=== PATIENT | male | born 1955 | race Caucasian/White ===

== ENCOUNTER → 2016-12-01 | Outpatient (CLI) | payer OTHER ==
--- NOTE | 2016-12-01 18:52 | Diagnostic Imaging Report ---
INDICATION: Left-sided chest wall pain of two weeks' duration. COMPARISON: No priors. FINDINGS: Flattening of the diaphragms and expansion of the retrosternal airspace, compatible with symmetrical air trapping. There are some discoid atelectatic changes in the right middle lobe. No alveolar consolidation. No effusion or pneumothorax. Hilar and mediastinal contour is normal. No free or beneath the diaphragms. No osseous abnormality identified. IMPRESSION: Hyperexpanded lungs with air trapping. Mild discoid atelectasis in the right middle lobe. No pneumonia or acute pleural pathology. No failure or chest wall abnormality. Dictated by: Dictated on workstation # [id number]
== END ==
LOC: RAD 14:46
PROVIDERS: ATTEND Internal Medicine
DX: R07.89 Other chest pain (principal); F17.200 Nicotine dependence, unspecified, uncomplicated
CPT/HCPCS: 71020

== ENCOUNTER 2017-08-02 05:38 | Outpatient (CLI) | payer BC ==
[~2017-08-02] VITALS: Ht 170.2 cm; Wt 69.4 kg
[2017-08-02] MEDS ORDERED: ASPI-586 PO (10:09)
[2017-08-02] MEDS ORDERED: VARE1TAB22 PO (10:09)
[2017-08-02] MEDS ORDERED: LEVO50TA6 PO (10:09)
[2017-08-02] MEDS ORDERED: SIMV40TA4 PO (10:09)
== END 2017-08-02 10:15 ==
LOC: PREOP 05:38
PROVIDERS: ATTEND Internal Medicine
DX: Z01.818 Encounter for other preprocedural examination (principal); Z12.11 Encounter for screening for malignant neoplasm of colon

== ENCOUNTER 2017-08-04 07:31 | Day surgery (SDC) | payer BC, OTHER ==
--- NOTE | 2017-07-25 14:56 | HISTORY AND PHYSICAL ---
DATE OF SERVICE: DATE OF ADMISSION: 08/04/2017. HISTORY OF PRESENT ILLNESS: The patient is a 62-year-old white male who presented to the office for routine medical check and evaluation of hyperlipidemia, as well as tobaccoism. He reports that he has been feeling well. He has been dizzy over the summer and his weight was down 8 pounds. He has a 30+ pack year smoking history and has been taking Chantix, but still smoking 1 to 2 cigarettes per day. He denies cough, hemoptysis or chest pain. He had a chest x-ray for chest wall pain in November that revealed no pulmonary or chest wall abnormalities. Energy level has been reportedly good and he voiced no complaints. In review of his chart he had one other colonoscopy performed in 2003 that was unremarkable so made recommendation for repeat screening colonoscopy. He has noted no bright red blood per rectum or melena. Denies abdominal pain or bowel habit change. PAST SURGICAL HISTORY: Noncontributory. PAST MEDICAL HISTORY: Has history of hyperlipidemia with no known history of vascular disease. He was recently diagnosed with hypothyroidism which may actually be contributing to his weight loss. TSH was 36.8 on the 18 of July, and he has been initiated on 0.05 mg of L-thyroxine with peak TSH scheduled in six weeks. PHYSICAL EXAMINATION: GENERAL: Reveals a white male who appears to be in no acute distress. He did have some mild facial puffiness. VITAL SIGNS: Blood pressure is 122/76 with a heart rate of 60 and regular. NECK: Revealed no JVD, adenopathy or bruits. CHEST: Chest was clear. CARDIOVASCULAR: Revealed a regular rate and rhythm without murmur, S3 or S4. ABDOMEN: Soft, supple without mass, organomegaly or tenderness. EXTREMITIES: Reveal no cyanosis, clubbing or edema. HEENT: Oral cavity revealed a Mallampati 1 configuration. Pharynx was clear. No exudate was noted. ASSESSMENT AND PLAN: 1. Hypothyroidism. Presume Bharathi's. No past history of radiation exposure. No known family history of autoimmune disease that the patient is aware of. L-thyroxine has been initiated as per above 0.05 mg daily, with repeat TSH in six weeks. 2. The patient is set up for screening colonoscopy as it has been 13 years. 3. Hyperlipidemia despite hypothyroidism remains under good control. Blood tests were reviewed with the patient. His HDL cholesterol is 59 and LDL 64 with a triglyceride level of 81. PSA was low at 0.81. He is scheduled for routine followup in six months. Job ID: [id number] DocumentID: [id number] Dictated Date: 07/25/2017 13:54:35 Travel Director Date: 07/25/2017 14:56:39 Dictated By: JOCELYNE GONZALEZ MD
[~2017-08-04] VITALS: Ht 170.2 cm; Wt 69.4 kg
[~2017-08-04 07:31] MED LIST: ASPI-586 PO; LEVO50TA6 PO; SIMV40TA4 PO; VARE1TAB22 PO
[2017-08-04] MEDS ORDERED: 1/2 NS IV SOLUTION 1,000 ML IV ONE (07:43)
[2017-08-04] MEDS ORDERED: 1/2 NS IV SOLUTION 1,000 ML IV STA (07:44)
[2017-08-04] MEDS ORDERED: LIDOCAINE JELLY 2% (XYLOCAINE) 5 ML TUBE MM PRN (07:45)
[2017-08-04 08:07] VITALS: BP 109/80
[2017-08-04] MEDS: fentaNYL INJECTION 100 MCG/2 ML AMP IVP PRN ×2 (08:36→08:59)
[2017-08-04] MEDS: MIDAZOLAM 2 MG/2 ML (VERSED) VIAL IVP PRN ×2 (08:49→09:07)
--- NOTE | 2017-08-04 09:29 | Pre-Op Note & Conscious Sedat ---
Pre-Operative Progress Note H&P Reviewed The H&P was reviewed, patient examined and no changes noted. Date H&P Reviewed: Aug 04, 2017 Time H&P Reviewed: 08:00 Conscious Sedation Pre-Proced ASA Class: 2 Airway Mallampati Classification: ([place] appropriate class) I. II. III, IV Lungs Heart ASA score ASA 1: a normal healthy patient ASA 2: a patient with a mild systemic disease (mid diabetes, controlled hypertension, obesity ASA 3: a patient with a severe systemic disease that limits activity (angina , COPD, prior Myocardial infarction) ASA 4: a patient with an incapacitating disease that is a constant threat to life (CHF, renal failure) ASA 5: a moribund patient not expected to survive 24 hrs. (ruptured aneurysm) ASA 6: a declared brain patient whose organs are being harvested. For emergent operations, add the letter E after the classification Grade 1 Sedation Plan: Analgesia, Amnesia, Plan communicated to team members, Discussed options with patient/fam, Discussed risks with patient/fam Note The patient is an appropriate candidate to undergo the planned procedure, sedation, and anesthesia. The patient immediately re-assessed prior to indication. JOCELYNE GONZALEZ MD Aug 04, 2017 09:29
[2017-08-04 09:40] VITALS: BP 112/67
[2017-08-04 10:10] VITALS: BP 106/68
[2017-08-04 10:28] VITALS: BP 106/68
--- NOTE | 2017-08-06 12:40 | OPERATIVE REPORT ---
DATE OF SERVICE: 08/04/2017 COLONOSCOPY SUMMARY I am his primary care physician. INDICATION FOR THE PROCEDURE: Screening colonoscopy. DESCRIPTION OF PROCEDURE: The patient was placed in the left lateral decubitus position. Prior to undergoing colonoscopy, digital rectal evaluation was performed. Anal sphincter tone was normal and the perianal reflex was intact. The prostate was mildly enlarged, flat, anodular and nontender to digital inspection. No abnormalities, no additional inspection of anal canal or distal rectal vault. The colonoscope was then inserted into the rectum and under direct visualization, advanced to the cecum. The cecum was identified by identification of the ileocecal valve and cecal strap. Photographic documentation was obtained. Careful inspection was made as the colonoscope was withdrawn. FINDINGS: There was no evidence for internal or external hemorrhoids and the rectum was unremarkable. Mild diverticular disease confined to the sigmoid colon was present without evidence for diverticulitis. The descending colon, splenic flexure and transverse colon were unremarkable. A diminutive adenomatous appearing polyp was present at the hepatic flexure. It was biopsied and cauterized with hot forceps with no subsequent blood loss. The ascending colon and cecum were unremarkable. Assessment: 1 one diminutive polyp was removed via hot forceps from the hepatic flexure. Pathology confirmed a benign tubular adenoma. We'll advocate consideration for repeat screening colonoscopy in 10 years. Patient is not aware of any family history for colon cancer or polyps. 2. Mild diverticular disease confined to the sigmoid colon. 3. Digital evaluation compatible with mild BPH as noted above. DICTATION ENDS HERE Job ID: [id number] DocumentID: [id number] Dictated Date: 08/04/2017 12:45:52 Coding Compliance Auditor Date: 08/05/2017 01:04:45 Dictated By: JOCELYNE GONZALEZ MD [facility]
== END 2017-08-04 10:28 | disposition home or self-care (01) ==
LOC: ENDO 07:31
PROVIDERS: ATTEND Internal Medicine
DX: Z12.11 Encounter for screening for malignant neoplasm of colon (principal); K57.30 Diverticulosis of large intestine without perforation or abscess without bleeding; E78.5 Hyperlipidemia, unspecified; E03.9 Hypothyroidism, unspecified; F17.210 Nicotine dependence, cigarettes, uncomplicated

== ENCOUNTER 2019-11-04 12:05 | Outpatient (CLI) | payer BC ==
[~2019-11-04] VITALS: Ht 170 cm; Wt 77.2 kg
[~2019-11-04 12:05] MED LIST changes: +SIMV40TA25 PO; -SIMV40TA4 PO
[2019-11-04] MEDS ORDERED: LEVO125T6 PO (13:42)
== END 2019-11-04 13:50 | disposition home or self-care (01) ==
LOC: PREOP 12:05
PROVIDERS: ATTEND Surgery
DX: Z01.818 Encounter for other preprocedural examination (principal)

== ENCOUNTER 2019-11-06 12:57 | Day surgery (SDC) | payer BC, MEDICARE ==
[2019-11-06] VITALS (11 sets, daily range): BP systolic 136–164; BP diastolic 72–90
[~2019-11-06] VITALS: Ht 170 cm; Wt 77.2 kg
[~2019-11-06 12:57] MED LIST changes: +LEVO125T6 PO
[2019-11-06] MEDS ORDERED: ceFAZolin 2 GM/50 ML NS 50 ML IV ONE (13:15)
[2019-11-06] MEDS: LACTATED RINGERS 1,000 ML IV PRN ×2 (13:30→15:24)
[2019-11-06] MEDS ORDERED: BUP/EPI 0.5% 1:200,000 (SENSORCAINE) 30 ML VIAL ONE (13:49)
[2019-11-06] MEDS ORDERED: ASPI-586 PO (13:52)
--- NOTE | 2019-11-06 14:00 | Progress Note-Pre Operative ---
Pre-Operative Progress Note H&P Reviewed The H&P was reviewed, patient examined and no changes noted. Time Seen by Provider: 13:58 Date H&P Reviewed: Nov 06, 2019 Time H&P Reviewed: 13:56 Pre-Operative Diagnosis: Incacerated VIJAYA SPRINGER DO Nov 06, 2019 14:00
[2019-11-06] MEDS ORDERED: LIDOCAINE PF 2% 5 ML (XYLOCAINE) VIAL ONE (14:19)
[2019-11-06] MEDS ORDERED: MIDAZOLAM 2 MG/2 ML (VERSED) VIAL ONE (14:19)
[2019-11-06] MEDS ORDERED: fentaNYL INJECTION 100 MCG/2 ML AMP ONE (14:19)
[2019-11-06] MEDS ORDERED: SEVOFLURANE (ULTANE) 15 ML INHAL SOLN ONE ×3 (14:19→15:31)
[2019-11-06] MEDS ORDERED: proPOfol 200 MG/20 ML (DIPRIVAN) VIAL IV ONE (14:19)
[2019-11-06] MEDS ORDERED: DEXAMETHASONE 10 MG/ML (DECADRON) 1 ML VIAL ONE (14:23)
[2019-11-06] MEDS ORDERED: ROCURONIUM 10 MG/ML 5 ML SYRINGE IV ONE (14:23)
[2019-11-06] MEDS ORDERED: ONDANSETRON 4 MG/2 ML (SDV) Z0FRAN ONE (14:23)
[2019-11-06] MEDS ORDERED: GLYCOPYRROLATE 0.2 MG/ML (ROBINUL) 2 ML VIAL ONE (15:17)
[2019-11-06] MEDS ORDERED: NEOSTIGMINE 1 MG/ML 5 ML SYRINGE ONE (15:17)
--- NOTE | 2019-11-06 15:39 | Progress Note-Post Operative ---
Post-Operative Progess Note Surgeon (s)/Servicenow Administrator Developer (s) Surgeon VIJAYA SMITH DO Servicenow Administrator Developer: Sarah Pre-Operative Diagnosis Incacerated RIH Post-Operative Diagnosis Incarcerated RIH Cord Lipoma Procedure & Operative Findings Date of Procedure 11/06/19 Procedure Performed/Findings RIH with mesh Exc cord lipoma Anesthesia Type GET Estimated Blood Loss Estimated blood loss (mL): scant Specimens/Packing Specimens Removed hernia sac cord lipoma VIJAYA SMITH DO Nov 06, 2019 15:39
[2019-11-06] MEDS ORDERED: ACHD5005 PO (15:40)
--- NOTE | 2019-11-06 15:41 | Discharge Inst-Surgical ---
Discharge Inst-Surgical Depart Medication/Instructions New, Converted or Re-Newed RX: RX Given to Pt/Family Patient Instructions Follow up Appt: Make appointment for 1 week. [phone] Instructions: No lifting greater than 20 pounds. No strenuous activity. May shower in 24 hours, no tub bath or soaking. Use incentive spirometer at home as directed. No Smoking Skin/Wound Care: May remove bandages in am. You need to leave the Dermabond on incision it will fall off on it's own. Symptoms to Report: Appetite Changes, Extremity Discoloration, Numbness/Tingling, Swelling Increased, Bleeding Excessive, Eyesight Changes, Pain Increased, Urine Color Change, Constipation(Persistent), Fever over 101 degree F, Pain/Pressure in chest, Urinating Difficulty, Cough Up/Vomit Blood, Heart Beat Irreg/Pounding, Pain/Pressure in jaw, Cramps in feet or legs, Lightheadedness, Pain/Pressure in shoulder, Diarrhea(Persistent), Memory Changes Suddenly, Questions/Concerns, Weight gain consecutive days, Dizziness/Fainting, Nausea/Vomiting, Shortness of Breath, Weight gain over 2 pounds If questions or concerns contact your physician Or seek help at emergency department. Activity Activity Instructions: Avoid Stress to Incision Driving Instructions: No Driving/Refer to Dr. Waite Discharge Diet: No Restrictions Diet After 24 Hours: Clear Liquid if Nauseous If Any Problems/Questions/Issu: Contact Your Physician, Go to Emergency Room Skin/Wound Care Infection Signs and Symptoms: Increased Redness, Foul Odor of Wound, Increased Drainage, Skin Itchy or Has a Rash, Increased Swelling, Temperature Above 101 F Bathing Instructions: Shower Stitches/Clay/Dermabond Dis: Dermabond Ice Pack: Ice On and Off Site (as needed for pain) VIJAYA SMITH DO Nov 06, 2019 15:41
[2019-11-06] MEDS ORDERED: HYDROmorphone 2 MG/ML VIAL (DILAUDID) ONE (15:45)
[2019-11-06] MEDS ORDERED: ONDANSETRON 4 MG/2 ML (SDV) Z0FRAN IVP PRN (15:45)
[2019-11-06] MEDS ORDERED: HYDROmorphone 2 MG/ML VIAL (DILAUDID) IV ONE (15:45)
[2019-11-06] MEDS ORDERED: HYDROcodone/APAP 5 MG/325 MG (LORTAB) TAB ONE (16:54)
[2019-11-06] MEDS ORDERED: HYDROcodone/APAP 5 MG/325 MG (LORTAB) TAB PO PRN (17:00)
--- NOTE | 2019-11-06 17:06 | NUR ---
LORTAB 5/325 MG, ONE TAB, GIVEN PO FOR C/O RIGHT LOWER ABD SURGICAL SITE PAIN RATED 3-4. DERMABOND INTACT TO SURGICAL INCISION, ICE PACK ON. HAS HAD CRACKERS AND PO FLUIDS WITHOUT PROBLEM.
--- NOTE | 2019-11-06 17:45 | NUR ---
SURGICAL SITE PAIN RATED 2. MOVES EASILY FROM LYING TO SITTING POSITION FOR DISMISSAL. NO CHANGE IN SITE ASSESSMENT. STATES HE IS READY FOR DISMISSAL.
--- NOTE | 2019-11-06 17:54 | Anesthesia-General Post-Op ---
General Patient Condition Mental Status/LOC: Same as Preop Cardiovascular: Satisfactory Nausea/Vomiting: Absent Respiratory: Satisfactory Pain: Controlled Complications: Absent Post Op Complications Complications None Follow Up Care/Instructions Patient Instructions None needed. Anesthesia/Patient Condition Patient Condition Patient is doing well, no complaints, stable vital signs, no apparent adverse anesthesia problems. No complications reported per nursing. D/C home per [facility] Criteria: Yes KHLOE HIGHTOWER CRNA Nov 06, 2019 17:54
--- NOTE | 2019-11-06 23:15 | OPERATIVE REPORT ---
DATE OF SERVICE: PREOPERATIVE DIAGNOSIS: Right inguinal hernia. POSTOPERATIVE DIAGNOSES: 1. Right incarcerated inguinal hernia. 2. Cord lipoma. PROCEDURES: 1. Right inguinal herniorrhaphy with mesh placement. 2. Excision of right cord lipoma. SURGEON: Emre Samano DO SAS DEVELOPER: Steve Smith DO ANESTHESIA: General endotracheal tube. SPECIMEN: Cord lipoma and hernia sac. BLOOD LOSS: Scant. FLUIDS: Per anesthesia. POSTOPERATIVE CONDITION: Stable. INDICATION FOR PROCEDURE: The patient is a 64-year-old male, who has pain in the right inguinal region bulging and diagnosed with a right inguinal hernia. FINDINGS: The patient had an incarcerated inguinal hernia, some fat stuck in the hernia sac. He also had a cord lipoma that was removed. PROCEDURE NOTE: After informed consent was obtained, the patient was brought to the operating room, placed on the operating table in supine position, sterilely prepped and draped in normal fashion. Local lidocaine was used to perform an ilioinguinal nerve block as well as pubic tubercle block and infiltrated the right inguinal region with local, then made an incision with #15 blade, carried down through skin into subcutaneous tissue, deepened down to subcutaneous tissue with Bovie electrocautery down to fascia. Fascia of the external oblique was then infiltrated with local and incised to the external inguinal ring with Bovie electrocautery and then carefully and bluntly dissected under this and then able to get under the cord and cord structures at the pubic tubercle, placed a [place] drain, pulled in inferolateral direction, and start looking superiorly, medially, found the indirect hernia sac, able to grasp this and carefully dissected this off the cord and cord structures bluntly as well as with some Bovie electrocautery. Once able to peel it off and opened up, there was a piece of fat, this was pushed back in and then twisted the hernia sac and suture ligated the hernia sac with 2-0 Vicryl and then tied with 2-0 Vicryl. I then cut this hernia sac off and passed off the table. Encountered a cord lipoma, I elected to remove this. Cut this off with Bovie electrocautery and passed this off the table. There is a mild floor defect little bit of weakness, almost a direct inguinal hernia closed with 2-0 Vicryl [id number] sutures to support it, then placed a Parietex mesh into the canal, trimmed to fit into the inguinal canal, sutured once the pubic tubercle with 0 Vicryl and circled the cord with a precut hole thereby recreating the internal inguinal ring. Placed the rest of the mesh underneath the external oblique fascia and then copiously irrigated with normal saline, suctioned this out. Closed the external oblique fascia with 3-0 Vicryl running suture, thereby recreating the external inguinal ring. I then closed Francisco Javier's fascia with 3-0 Vicryl, 2 interrupted sutures and closed the skin with 4-0 undyed Monocryl. After the Francisco Javier's fascia was closed, then closed the skin with 4-0 undyed Monocryl in subcuticular fashion. Area was cleaned and dried and Dermabond placed as well as a bandage. The patient tolerated the procedure. Sponge, instrument and needle count correct at the end of the case. Dr. Smith assisted in this case helping to make incision, close incision, identifying anatomy and hold the anatomy out of way. Job ID: [id number] DocumentID: [id number] Dictated Date: 11/06/2019 15:37:18 Fermenter Helper Date: 11/06/2019 23:14:57 Dictated By: EMRE SAMANO DO
== END 2019-11-06 17:45 | disposition home or self-care (01) ==
LOC: SDC 12:57
PROVIDERS: ATTEND Surgery
DX: K40.30 Unilateral inguinal hernia, with obstruction, without gangrene, not specified as recurrent (principal); D17.79 Benign lipomatous neoplasm of other sites; E78.5 Hyperlipidemia, unspecified; E03.9 Hypothyroidism, unspecified; G62.9 Polyneuropathy, unspecified; F17.210 Nicotine dependence, cigarettes, uncomplicated; F12.90 Cannabis use, unspecified, uncomplicated; Z79.899 Other long term (current) drug therapy
CPT/HCPCS: 87081; 94664

== ENCOUNTER → 2021-04-21 | Outpatient (CLI) | payer MEDICARE ==
[~2021-04-21] MED LIST changes: +ACHD5005 PO
--- NOTE | 2021-04-21 12:56 | Diagnostic Imaging Report ---
PROCEDURE: MRI lumbar spine without contrast. TECHNIQUE: Multiplanar, multisequence MRI of the lumbar spine was performed without contrast. INDICATION: Low back pain and right hip radiculopathy. COMPARISON: None. FINDINGS: 5 lumbar type vertebral bodies are visualized with the last well-formed disc space designated L5-S1. No acute fracture or dislocation is seen in the lumbar spine. There is straightening of the lumbar spine. Vertebral body heights are well-maintained. Modic type I endplate degenerative changes are present at the L3-L4 and L5-S1 levels. The conus terminates at the L1 level. No masses are seen associated with the conus or nerve roots of the cauda equina. No epidural collections are identified. Multilevel degenerative changes are seen in the lumbar spine with disc bulges, facet hypertrophy, and buckling of the ligamentum flavum. T12-L1: No significant spinal canal or foraminal stenosis. L1-L2: No significant spinal canal or foraminal stenosis. L2-L3: Broad-based disc bulge, facet hypertrophy, and buckling of the ligamentum flavum results in vxvw-lq-pwysfqpm bilateral foraminal narrowing and mild spinal canal narrowing. L3-L4: Broad-based disc bulge, facet hypertrophy, and buckling of the ligamentum flavum results in moderate spinal canal stenosis and moderate right and cujikzxz-qe-jsfqpm left foraminal stenosis. L4-L5: Broad-based disc bulge, facet hypertrophy, and buckling of the ligamentum flavum results in moderate spinal canal stenosis and xxaofxvf-qj-dthekq bilateral foraminal stenosis. L5-S1: Broad-based disc bulge with superimposed right lateral protrusion, facet hypertrophy, and buckling of the ligamentum flavum results in mild spinal canal narrowing and lqxisnmx-ck-gyyzng right and moderate left foraminal stenosis. Paravertebral soft tissues are unremarkable. IMPRESSION: 1. No acute fracture or dislocation in the lumbar spine. 2. Multilevel degenerative changes in the lumbar spine, greatest at L3-L4, L4-L5 and L5-S1. In particular, a prominent right lateral disc protrusion at the L5-S1 level is present which may represent the patient's history of right hip radiculopathy. 3. Endplate degenerative changes at the L3-L4 and L5-S1 levels. Dictated by: Dictated on workstation # [id number]
== END ==
LOC: RAD 11:00
PROVIDERS: ATTEND Internal Medicine
DX: M47.27 Other spondylosis with radiculopathy, lumbosacral region (principal); M51.17 Intervertebral disc disorders with radiculopathy, lumbosacral region
CPT/HCPCS: 72148

== ENCOUNTER → 2022-08-26 | Outpatient (CLI) | payer MEDICARE ==
--- NOTE | 2022-08-26 11:20 | Diagnostic Imaging Report ---
CT Lung Screening INDICATION:40 pack year smoking history, current smoker for baseline low-dose CT screening. TECHNIQUE: Noncontrast, low-dose CT imaging performed according to the lung cancer screening protocol. Auto Exposure Controls were utilize during the CT exam to meet ALARA standards for radiation dose reduction. COMPARISON:Baseline FINDINGS:No suspicious or concerning lung mass. There is some mild biapical pleural-parenchymal scarring and symmetrical pulmonary hyperexpansion. No findings to suggest lung cancer. There is no axillary, hilar or mediastinal adenopathy and no chest effusion. There is coronary arteriosclerotic vascular calcifications with no acute or suspicious chest wall abnormality. Thoracic aorta nonaneurysmal. No findings of edema or pneumonia. Visualized upper abdomen nonacute IMPRESSION:No findings of lung cancer, continued annual low-dose CT screening followup recommended LUNG-RADS CATEGORY:Category 1 MODIFIER:None OTHER SIGNIFICANT FINDINGS:Air trapping and coronary artery vascular calcifications. Dictated by: Dictated on workstation # [id number]
== END ==
LOC: RAD 07:49
PROVIDERS: ATTEND Internal Medicine
DX: Z12.2 Encounter for screening for malignant neoplasm of respiratory organs (principal); F17.210 Nicotine dependence, cigarettes, uncomplicated
CPT/HCPCS: 71271

== ENCOUNTER 2022-10-20 13:02 | Outpatient (RCR) | payer MEDICARE | END 2022-10-22 | disposition home or self-care (01) | PROVIDERS: ATTEND Internal Medicine | DX: M54.2 Cervicalgia (principal) ==

== ENCOUNTER → 2022-11-22 | Outpatient (RCR) | payer MEDICARE | END | disposition home or self-care (01) | PROVIDERS: ATTEND Internal Medicine | DX: M54.2 Cervicalgia (principal); Z74.09 Other reduced mobility ==

== ENCOUNTER 2022-11-24 15:11 | Outpatient (RCR) | payer MEDICARE | END 2022-12-20 | disposition home or self-care (01) | PROVIDERS: ATTEND Internal Medicine | DX: M54.2 Cervicalgia (principal); Z74.09 Other reduced mobility; R53.1 Weakness ==

== ENCOUNTER → 2023-02-21 | Outpatient (CLI) | payer MEDICARE ==
--- NOTE | 2023-02-22 11:58 | Diagnostic Imaging Report ---
PROCEDURE: MR imaging cervical spine without contrast. TECHNIQUE: Multiplanar, multisequence MR imaging of the cervical spine was performed without contrast. INDICATION: Chronic neck pain. COMPARISON: none. FINDINGS: No acute fracture or dislocation is seen in the cervical spine. There is straightening of the cervical spine. Modic type I endplate degenerative changes are present at the C3-C4, C5-C6 and C6-C7 levels. No suspicious focal osseous lesions. The craniocervical junction is maintained. The cervical spinal cord demonstrates normal intrinsic signal. No epidural collections are seen. The included brainstem and posterior fossa have normal appearance. Multilevel degenerative changes are seen in the cervical spine with posterior disc bulges and uncovertebral arthropathy. C2-C3: Uncovertebral arthropathy results in no significant spinal canal narrowing and moderate right and no left foraminal stenosis. C3-C4: Disc osteophyte complex and uncovertebral arthropathy results in mild to moderate spinal canal narrowing and moderate to severe bilateral foraminal stenosis. C4-C5: Disc osteophyte complex and uncovertebral arthropathy results in mild spinal canal narrowing and moderate right and moderate to severe left foraminal stenosis. C5-C6: Disc osteophyte complex and uncovertebral arthropathy results in mild to moderate spinal canal narrowing and moderate bilateral foraminal stenosis. C6-C7: Disc osteophyte complex, uncovertebral arthropathy, and buckling of the ligamentum flavum results in moderate to severe spinal canal stenosis and moderate to severe bilateral foraminal stenosis. C7-T1: No significant spinal canal or foraminal stenosis. The soft tissues of neck are unremarkable. IMPRESSION: 1. No acute fracture or dislocation of the cervical spine. 2. Multilevel degenerative changes in the cervical spine, greatest at C5-C6 and C6-C7. 3. Modic type I endplate degenerative changes at the C3-C4, C5-C6, and C6-C7 levels. \ Dictated by: Dictated on workstation # [id number]
== END ==
LOC: RAD 07:59
PROVIDERS: ATTEND Internal Medicine
DX: M47.812 Spondylosis without myelopathy or radiculopathy, cervical region (principal)
CPT/HCPCS: 72141

== ENCOUNTER → 2023-08-30 | Outpatient (CLI) | payer OTHER ==
--- NOTE | 2023-08-30 11:49 | Diagnostic Imaging Report ---
EXAMINATION: CT Lung Screening. INDICATION: Current smoker with 50 pack year history for annual low-dose CT screening. TECHNIQUE: Noncontrast, low-dose CT imaging performed according to the lung cancer screening protocol. Auto Exposure Controls were utilize during the CT exam to meet ALARA standards for radiation dose reduction. COMPARISON: 08/26/2022. FINDINGS: No lung mass or suspicious pulmonary nodule. No findings of edema or pneumonia. No thoracic lymphadenopathy. Air trapping and COPD are chronic. No acute chest wall pathology. The visible upper abdomen is nonacute. There are chronic coronary artery atherosclerotic vascular calcifications. IMPRESSION: No acute finding or features of lung cancer. Continued annual low-dose CT screening followup recommended. LUNG-RADS CATEGORY:Category 1. MODIFIER:None. OTHER SIGNIFICANT FINDINGS:Coronary atherosclerosis and chronic air trapping. Dictated by: Dictated on workstation # [id number]
== END ==
LOC: RAD 10:10
PROVIDERS: ATTEND Nurse Practitioner Family
DX: Z13.89 Encounter for screening for other disorder (principal); Z87.891 Personal history of nicotine dependence
CPT/HCPCS: 71271